=== PATIENT | female | born 1955 ===

== ENCOUNTER 2018-01-18 00:29 | Inpatient (IN) | payer BC ==
[2018-01-17 13:47] LABS: INR 1.01
[~2018-01-18] VITALS: Ht 167.6 cm; Wt 77.6 kg
[2018-01-18] VITALS (12 sets, daily range): BP systolic 92–156; BP diastolic 56–101
[~2018-01-18 00:29] MED LIST: LISI-351 PO
--- NOTE | 2018-01-18 08:33 | HISTORY AND PHYSICAL ---
DATE OF ADMISSION: January 18, 2018 IDENTIFICATION/CHIEF COMPLAINT Radha is a 62-year-old woman with the chief complaint of right knee pain. HISTORY OF PRESENT ILLNESS Radha has a long-standing history of knee arthritis which has become progressively painful and debilitating and refractory to conservative care. Surgery is indicated to relieve symptoms after failure of nonoperative measures. PAST MEDICAL HISTORY Hypertension, well controlled on medication. PAST SURGICAL HISTORY * Prior right knee scope. * Tonsillectomy. * Hysterectomy. ALLERGIES 1. BACTRIM. 2. CIPRO. 3. AMPICILLIN. CURRENT MEDICATIONS * Lisinopril 12.5 mg p.o. q.day. * Various vitamins. SOCIAL HISTORY Negative for tobacco and alcohol use. FAMILY HISTORY Noncontributory. REVIEW OF SYSTEMS Notable for prediabetic with borderline A1c. PHYSICAL EXAMINATION: GENERAL: This is a well-developed, well-nourished female who appears staged age. HEENT: Normocephalic, atraumatic. NECK: Supple. LUNGS: Clear. HEART: Regular. ABDOMEN: Soft. ORTHOPEDIC EXAM: The right knee has an effusion. She has crepitus noted. She is mildly stiff at the end range. Extensor function intact. Gross stability is good. IMAGING Radiographs demonstrate end-stage knee DJD. ASSESSMENT Right knee degenerative joint disease, progressively painful and debilitating, refractory to conservative care. PLAN Per patient request we are going to proceed with total knee arthroplasty. The nature of the procedure, risks, benefits, the anticipated rehab course were reviewed with the patient. The risks of the procedure include, but are not limited to , major medical or anesthetic complication, infection, neurovascular injury, blood transfusion, stiffness, scarring, fracture, tendon rupture or instability, persistent or recurrent pain or symptoms, need for additional surgery and other unforeseen. She understands and wishes to proceed. A signed permit was placed in the chart. No guarantees are given or implied. CHRISTIAN
[2018-01-18] MEDS ORDERED: SCOPOLAMINE 1.5 MG PATCH TD ONE (11:50)
[2018-01-18] MEDS ORDERED: APREPITANT 40 MG CAP PO ONE (11:50)
[2018-01-18] MEDS ORDERED: PROPOFOL EMUL(*) 10MG/ML 20 ML 20 ML ONE (12:40)
[2018-01-18] MEDS ORDERED: ONDANSETRON 4 MG/2 ML VIAL ONE (12:40)
[2018-01-18] MEDS ORDERED: fentaNYL CITR 100 MCG/2 ML AMP ONE (12:40)
[2018-01-18] MEDS ORDERED: DEXAMETHASONE SOD PHOS 10MG/ML ONE (12:40)
[2018-01-18] MEDS ORDERED: LIDOCAINE MPF 1% 5 ML VIAL ONE (12:40)
[2018-01-18] MEDS ORDERED: CELECOXIB 200 MG CAP PO ONE (13:45)
[2018-01-18] MEDS ORDERED: LIDOCAINE/SOD BICARB 8.4% SYR ID ONE (13:45)
[2018-01-18] MEDS ORDERED: TRANEXAMIC AC 1000 MG/10ML SDV 1,000 MG in DEXTROSE 5% 50 ML BAG 50 ML IV ONE (13:45)
[2018-01-18] MEDS ORDERED: NORMOSOL R SOLN(*) 1000 ML BAG 1,000 ML IV PRN ×2 (13:45→16:15)
[2018-01-18] MEDS ORDERED: ACETAMINOPHEN 500 MG TAB PO ONE (13:45)
[2018-01-18] MEDS ORDERED: PREGABALIN 150 MG CAPSULE PO ONE (13:45)
[2018-01-18] MEDS ORDERED: MIDAZOLAM 2 MG/2 ML VIAL IVP PRN (13:45)
[2018-01-18] MEDS ORDERED: FAMOTIDINE 20 MG TAB PO ONE (13:45)
[2018-01-18] MEDS ORDERED: cloNIDine EPIDUR INJ 100MCG/ML 40 MCG, ROPIVACAINE 0.5% 20 ML VIAL 25 ML, EPINEPHrine H... INJ ONE (13:45)
[2018-01-18] MEDS ORDERED: ceFAZolin(*) 1 GM VIAL 1 GM in NS(*) 0.9% 100 ML ADDVANT BAG 100 ML IVPB ONE (13:45)
[2018-01-18] MEDS ORDERED: PHENYLEPHRINE 10 MG/1 ML VIAL ONE (14:38)
[2018-01-18] MEDS ORDERED: BISACODYL 10 MG SUPP PR PRN (16:15)
[2018-01-18] MEDS ORDERED: ACETAMINOPHEN 325 MG TAB PO PRN (16:15)
[2018-01-18] MEDS ORDERED: ZOLPIDEM TARTRATE 5 MG TAB PO PRN (16:15)
[2018-01-18] MEDS ORDERED: MAGNESIUM HYDROXIDE* 30ML UDCP PO PRN (16:15)
[2018-01-18] MEDS ORDERED: PROMETHAZINE 25 MG/ML 1 ML AMP IVP PRN (16:15)
[2018-01-18] MEDS ORDERED: DIAZEPAM 5 MG TAB PO PRN (16:15)
[2018-01-18] MEDS ORDERED: diphenhydrAMINE 25 MG CAP PO PRN (16:15)
[2018-01-18] MEDS ORDERED: BENZOCAINE/MENTHOL 1 EACH LOZG PO PRN (16:15)
[2018-01-18] MEDS ORDERED: FLUSH 10 ML SYR IVP PRN (16:15)
[2018-01-18] MEDS ORDERED: diphenhydrAMINE 50 MG/ML VIAL IVP PRN (16:15)
--- NOTE | 2018-01-18 16:50 | RADIOLOGY IMAGING REPORT ---
FACILITY: [facility] PATIENT NAME: Radha Jensen : 1955 MR: [id number] V: [id number] EXAM DATE: ORDERING PHYSICIAN: ARANZA PANIAGUA TECHNOLOGIST: Location: [facility] Patient: Radha Jensen : 1955 Visit/Account:[id number] Date of Sevice: 01/18/2018 Right knee Indication: Right total knee arthroplasty. Comparison: None available Findings: Two views right knee demonstrate expected finding status post right total knee arthroplasty. Alignme nt anatomic with expected soft tissue changes. IMPRESSION: 1. Expected appearance status post right total knee arthroplasty. Report Dictated By: Paxton Yee MD at 01/18/2018 4:45 PM Report E-Signed By: Paxton Yee MD at 01/18/2018 4:46 PM WSN:[id number]
[2018-01-18] MEDS ORDERED: IBUPROFEN 800 MG TAB PO SCH (17:00)
--- NOTE | 2018-01-18 17:57 | Hospitalist Consultation ---
History of Present Illness Requesting Physician Dr. Calderon Reason for Consult Medical Management Chief Complaint s/p right knee replacement History of Present Illness She was admitted s/p right knee replacement. It is reported the surgery went well and without complication. History Problems: (1) Hypertension Status: Chronic Home Meds Reported Medications Lisinopril/Hydrochlorothiazide (LISINOPRIL-HCTZ 10-12.5 MG TAB) 1 Each Tablet, 1 EACH PO QDAY 01/11/18 Allergies: Coded Allergies: ciprofloxacin (Verified Allergy, Intermediate, hives , 01/11/18) sulfamethoxazole (Verified Allergy, Intermediate, hives, 01/11/18) trimethoprim (Verified Allergy, Intermediate, hives, 01/11/18) Patient History: FH: heart attack BROTHER OR SISTER FH: hypertension MOTHER Hx Smoking: No Smoking Status: Never Smoker Caffeine Intake: Coffee Caffeine/Cups Per Day: 1 cpd Hx Alcohol Use: No Hx Substance Use Disorder: No Review of Systems All Systems Reviewed/Normal: Yes, Except as Noted Exam Vital Signs Vital Signs Date Time Temp Pulse Resp B/P (MAP) Pulse Ox O2 Delivery O2 Flow Rate FiO2 01/18/18 17:25 88 16 93 01/18/18 11:35 98.6 156/101 (119) Room Air General Appearance: Alert, Awake, No Acute Distress, Afebrile Neuro: No Gross deficits Cardiovascular: Regular Rate and Rhythm Respiratory: No Respiratory Distress, Clear to Auscultation GI: Abd Soft and Non-Tender Psych: Alert & Oriented X3, Appropriate Mood & Affect Assessment and Plan Problems: (1) Status post right knee replacement Status: Acute Assessment & Plan: Followed by Dr. Calderon. She will be placed on Aspirin daily for DVT prophylaxis. (2) Hypertension Status: Chronic Assessment & Plan: She is on chronic treatment with Lisinopril and hydrochlorothiazide. The lisinopril has been started with hold parameters. Venous Thromboembolism Antithrombotics Is Pt On Any Antithrombotics?: No Problem Qualifiers (1) Hypertension: Hypertension type: essential hypertension Qualified Codes: I10 - Essential ( primary) hypertension MABLE ISSA [facility] Jan 18, 2018 17:57
[2018-01-18] MEDS: IBUPROFEN 800 MG TAB PO SCH (18:29)
[2018-01-18] MEDS: ceFAZolin(*) 1 GM VIAL 1 GM in NS(*) 0.9% 100 ML ADDVANT BAG 100 ML IVPB SCH (22:37)
[2018-01-19] VITALS (7 sets, daily range): BP systolic 88–121; BP diastolic 59–78; Ht 167.6 cm; Wt 77.6 kg
[2018-01-19] MEDS: IBUPROFEN 800 MG TAB PO SCH ×3 (01:26→17:17)
--- NOTE | 2018-01-19 04:17 | OPERATIVE REPORT 1 ---
EVENT DATE: January 18, 2018 SURGEON: Nicanor Calderon MD ANESTHESIOLOGIST: Jayme Galaviz MD ANESTHESIA: General plus spinal. [employer]PER[employer]: AMRIK Thrasher PREOPERATIVE DIAGNOSIS Right knee degenerative joint disease. POSTOPERATIVE DIAGNOSIS: Right knee degenerative joint disease. PROCEDURE Right total knee arthroplasty. ESTIMATED BLOOD LOSS Minimal. DRAINS None. SPECIMENS None. COMPLICATIONS No apparent. TOURNIQUET TIME 42 minutes. INDICATIONS Radha is a 62-year-old woman with intractable pain related to end-stage knee arthritis. Surgery is indicated to relieve symptoms after failure of nonoperative measures. DESCRIPTION OF PROCEDURE Patient is taken to the operating room, placed supine on the operating room table. General anesthesia is induced after spinal is administered by the anesthesiologist. Antibiotics and TXA are administered IV. Right lower extremity is prepped and draped in usual sterile fashion for knee arthroplasty. Limb is exsanguinated with an Esmarch bandage, tourniquet inflated to 250 mmHg. Midline longitudinal incision is made, carried down through the skin and subcu to the extensor mechanism. Full thickness flap is developed far enough medially to allow medial parapatellar arthrotomy to be performed. Patella is everted. Knee is put into flexed position. Fat pad, anterior horns of the menisci and the cruciate ligaments are debrided. A gentle subperiosteal medial release is initiated in titrated fashion to start to balance the knee. Step- drill is used to enter the distal femur. A 10 inch long alignment guide is used to engage the isthmus. Cut is set for 6 degrees valgus relative to the anatomic axis. A 10 mm resection block is applied, pinned, cuts made with an oscillating saw. AP sizing guide is applied to the distal femoral cut, positioned for 3 degrees of external rotation relative to the posterior condyles. Size 3 is optimal without risk of notching. 4-in-1 cutting block is applied. Anterior, posterior, posterior chamfer and anterior chamfer cuts are made respectively. PS box applied, centered, medial and lateral bone is removed from the box. Trial femur has nice line to line fit. Attention is turned to tibial preparation. The extramedullary guide is applied, positioned for varus, valgus, posterior slope and rotation. This is set to resect 9 mm off the relatively intact lateral tibial plateau. It is dropped down a millimeter or two to ensure an adequate cut. Block is pinned. Extramedullary alignment check is made. Cuts are made with an oscillating saw. Osteophytes are removed. Posterior condylar bone is removed. The gaps are balanced and symmetric with no additional releases required. The size 3 tibial base plate provides optimum bony coverage without soft tissue overhang. This is inserted along with a trial liner and a trial femur. Knee is brought to extension. The patella has a bipartite patella and is extensively spurred. The synostosis or the fibrous tissue connecting the accessory fragment is dissected, and the accessory fragment is removed. The primary fragment is taken from a starting thickness of 22 to residual of 14 with a patellar clamp and oscillating saw. A 31 mm button provides optimum bony coverage without soft tissue overhang. Lug holes are drilled. Patella tracks nicely with a no touch technique. Final tibial preparation consists of ensuring appropriate rotational and translational position of the component. Fin is punched. Surfaces are copiously lavaged. A mix of methacrylate is made, and the components are cemented in a single stage. When the cement is fully polymerized, tourniquet is deflated. Hemostasis is ensured. Wound is copiously lavaged. The 13 PS tibial tray liner fills up the gap ideally, allowing the knee to drop to full extension without hyperextension, providing optimal soft tissue tension and stability. Tray is lavaged and dried, and the liner is impacted into the base plate and locked in position. Joint is reduced. Arthrotomy is closed in flexion with #2 Ethibond, subcu with 3-0 Vicryl, skin with surgical monica. Xeroform is applied followed by a dry sterile dressing, compression wrap. Patient awakened from anesthesia and taken to recovery room in stable condition , having tolerated procedure well. Plan is for standard TK rehab protocol. [facility]
[2018-01-19] MEDS: ceFAZolin(*) 1 GM VIAL 1 GM in NS(*) 0.9% 100 ML ADDVANT BAG 100 ML IVPB SCH ×2 (06:33→13:45)
[2018-01-19] MEDS: LISINOPRIL 10 MG TAB PO SCH (08:46)
[2018-01-19] MEDS: ASPIRIN 325 MG TAB PO SCH (08:46)
[2018-01-19] MEDS: APAP/HYDROCODONE 325/7.5 TAB PO PRN ×4 (08:51→21:31)
--- NOTE | 2018-01-19 10:14 | Hospitalist Progress Note ---
Subjective Progress Notes Subjective She has no concerns this morning. She had no acute events overnight. Patient Complains of: Cardiovascular: No: Chest Pain Respiratory: No: Shortness of Breath Physical Exam Vital Signs Date Time Temp Pulse Resp B/P (MAP) Pulse Ox O2 Delivery O2 Flow Rate FiO2 01/19/18 07:42 98.7 86 18 120/78 (92) 94 Nasal Cannula 3.0 Intake and Output 01/20/18 06:59 Intake Total 953 ml Balance 953 ml Intake Oral 840 ml IV Total 113 ml General Appearance: Alert, Awake, No Acute Distress, Afebrile Neuro: No Gross deficits Cardiovascular: Regular Rate and Rhythm Respiratory: No Respiratory Distress, Clear to Auscultation GI: Soft and Non-Tender Psych: Alert & Oriented X3 Assessment and Plan Problems: (1) Status post right knee replacement Status: Acute Assessment & Plan: Followed by Dr. Calderon. She will be placed on Aspirin daily for DVT prophylaxis. (2) Hypertension Status: Chronic Assessment & Plan: She is on chronic treatment with Lisinopril and hydrochlorothiazide. The lisinopril has been started with hold parameters. Exam Sepsis Risk: No Definite Risk Problem Qualifiers (1) Hypertension: Hypertension type: essential hypertension Qualified Codes: I10 - Essential ( primary) hypertension MABLE ISSAP Jan 19, 2018 10:14
[2018-01-19] MEDS ORDERED: NORMOSOL R SOLN(*) 1000 ML BAG 1,000 ML IV ONE (10:35)
[2018-01-19] MEDS ORDERED: PATCH REMOVAL 1 EA TP ONE (12:00)
[2018-01-20] MEDS: IBUPROFEN 800 MG TAB PO SCH ×2 (00:28→08:25)
[2018-01-20 00:29] VITALS: BP 119/73
[2018-01-20 04:11] VITALS: BP 125/81
[2018-01-20 07:10] VITALS: BP 146/91
[2018-01-20] MEDS: ASPIRIN 325 MG TAB PO SCH (08:25)
[2018-01-20] MEDS: LISINOPRIL 10 MG TAB PO SCH (08:26)
[2018-01-20] MEDS ORDERED: ASPI-757 PO (08:39)
[2018-01-20] MEDS ORDERED: PANTOPRAZOLE SOD 40 MG TABEC PO SCH (09:00)
[2018-01-20] MEDS ORDERED: CELE-1 PO (09:09)
[2018-01-20] MEDS ORDERED: HYDR-4308 PO (09:10)
[2018-01-20] MEDS ORDERED: DIA5 PO (09:11)
[2018-01-20] MEDS ORDERED: PANT40TA65 PO (09:57)
--- NOTE | 2018-01-20 10:01 | Hospitalist Progress Note ---
Subjective Progress Notes Subjective She has complaints of heart burn this morning, which she contributes to increase in Ibuprofen use and Aspirin daily. Patient Complains of: Cardiovascular: No: Chest Pain Respiratory: No: Shortness of Breath Physical Exam Vital Signs Date Time Temp Pulse Resp B/P (MAP) Pulse Ox O2 Delivery O2 Flow Rate FiO2 01/20/18 07:12 91 Nasal Cannula 2.0 01/20/18 07:10 98.6 91 18 146/91 (109) Intake and Output 01/21/18 06:59 Intake Total 240 ml Balance 240 ml Intake Oral 240 ml # Voids 1 # Bowel Movements 1 General Appearance: Alert, Awake, No Acute Distress, Afebrile Neuro: No Gross deficits Cardiovascular: Regular Rate and Rhythm Respiratory: No Respiratory Distress, Clear to Auscultation GI: Soft and Non-Tender Psych: Alert & Oriented X3, Appropriate Mood & Affect Assessment and Plan Problems: (1) Status post right knee replacement Status: Acute Assessment & Plan: Followed by Dr. Calderon. She will be placed on Aspirin daily for DVT prophylaxis. We will add Protonix for her to take at home to help with heart burn. (2) Hypertension Status: Chronic Assessment & Plan: She is on chronic treatment with Lisinopril and hydrochlorothiazide. She will restart her medication after her systolic blood pressure is above 150. She will monitor her blood pressure at home. Exam Sepsis Risk: No Definite Risk Problem Qualifiers (1) Hypertension: Hypertension type: essential hypertension Qualified Codes: I10 - Essential ( primary) hypertension MABLE ISSA [employer] Jan 20, 2018 10:01
[2018-01-20 10:58] VITALS: BP 151/92
[2018-01-20] MEDS: APAP/HYDROCODONE 325/7.5 TAB PO PRN (12:38)
== END 2018-01-20 13:55 | disposition home or self-care (01) | DRG 470 ==
LOC: OR 00:29 → MED 17:20 → OBSVTOIN 17:20
PROVIDERS: ADMIT Orthopaedic Surgery; ATTEND Orthopaedic Surgery
PROC: 0SRC0J9 Replacement of Right Knee Joint with Synthetic Substitute, Cemented, Open Approach (ICD-10-PCS; principal; 2018-01-18 14:14)
DX: M17.11 Unilateral primary osteoarthritis, right knee (principal); I10 Essential (primary) hypertension; R12 Heartburn; Z90.710 Acquired absence of both cervix and uterus; Z88.0 Allergy status to penicillin; Z88.1 Allergy status to other antibiotic agents
CPT/HCPCS: 36415; 85610; 86850; 86900; 86901; 97161; J0171; J0690; J0735; J1100; J1885; J2001; J2250; J2370; J2405; J2704; J2795; J3010; J7050; J7060; J8501